=== PATIENT | female | born 1965 | race Caucasian/White ===

== ENCOUNTER → 2016-10-13 | Outpatient (CLI) | payer OTHER ==
--- NOTE | 2016-10-13 17:16 | REP ---
Clinical: Contusion. Technique: AP, lateral, bilateral oblique, and sunrise views of the right knee. Comparison: 04/28/2009. Findings: Marked, severe, progressive, tricompartmental osteoarthritic degenerative changes are appreciated. No acute fracture or dislocation. Suprapatellar effusion cannot be excluded. Impression: Severe advanced tricompartmental degenerative changes and possible suprapatellar effusion. No obvious acute fracture or dislocation. Signed by Philippe Cervantes MD 10/13/2016 11:22 A
--- NOTE | 2016-10-13 17:16 | REP ---
Clinical: Contusion. Technique: Neutral and frog lateral views of the right hip. Findings: Subtle increase sclerosis and minimal joint space narrowing is appreciated. No acute or healed fracture identified. No periarticular calcifications. Surrounding soft tissues are unremarkable. Impression: Mild degenerative changes. No acute fracture or dislocation. Signed by Philippe Cervantes MD 10/13/2016 11:21 A
== END ==
LOC: M WUC 10:42
PROVIDERS: ATTEND Physician Assistant
DX: S73.101A Unspecified sprain of right hip, initial encounter (principal); S80.01XA Contusion of right knee, initial encounter; X58.XXXA Exposure to other specified factors, initial encounter; Y92.89 Other specified places as the place of occurrence of the external cause; Y93.89 Activity, other specified; Y99.8 Other external cause status

== ENCOUNTER → 2016-10-28 | Outpatient (CLI) | payer BC ==
--- NOTE | 2016-10-28 08:24 | REP ---
Clinical: Abnormal liver findings by CT. Comparison: None. Findings: The patient is status post cholecystectomy without significant biliary ductal dilatation. The common bile duct measures 7.9 mm diameter. The liver demonstrates diffuse fatty infiltration without definite focal mass lesion or cyst identified. The pancreas is incompletely evaluated due to interposed bowel gas. 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 No ascites in the visualized right upper quadrant. Impression: Fatty infiltration to the liver without definitive cyst or hepatic mass lesion identified. Signed by Philippe Cervantes MD 10/28/2016 08:15 A
== END ==
LOC: M RAD 07:39
PROVIDERS: ATTEND Internal Medicine Gastroenterology
DX: K76.0 Fatty (change of) liver, not elsewhere classified (principal)

== ENCOUNTER → 2017-04-15 | Outpatient (CLI) | payer BC ==
[2017-04-15 12:55] LABS: BASO % 0.7 % (0.0-1.0); EOS # 0.2 K/mm3 (0.0-0.50); EOS % 2.9 % (0.0-3.0); LARGE UNSTAINED CELL # 0.2 K/mm3 (0.0-0.4); LARGE UNSTAINED CELL % 2.3 % (0.0-4.0); LYMPH # 1.9 K/mm3 (1.5-4.5); LYMPH % 27.8 % (24.0-44.0); MEAN CORPUSCULAR HEMOGLOBIN 26.9 pg (27.0-33.0); MEAN CORPUSCULAR HGB CONC 32.4 g/dl (32.0-36.5); MEAN CORPUSCULAR VOLUME 83.2 fl (80.0-96.0); MONO # 0.5 K/mm3 (0.0-0.8); MONO % 6.7 % (0.0-5.0); NEUTROPHILS % 59.6 % (36.0-66.0); PLATELET COUNT, AUTOMATED 235 k/mm3 (150-450); WHITE BLOOD COUNT 6.7 K/mm3 (4.0-10.0)
[2017-04-15 13:18] LABS: VITAMIN B12 LEVEL 328 PG/ML (247-911)
[2017-04-15 13:32] LABS: ALBUMIN 3.5 GM/DL (3.2-5.2); ALKALINE PHOSPHATASE 55 U/L (45-117); ALT/SGPT 28 U/L (12-78); ANION GAP 8 MEQ/L (8-16); AST/SGOT 15 U/L (15-37); BILIRUBIN,TOTAL 0.3 MG/DL (0.2-1.0); BLOOD UREA NITROGEN 9 MG/DL (7-18); CALCIUM LEVEL 8.9 MG/DL (8.5-10.1); CARBON DIOXIDE LEVEL 26 MEQ/L (21-32); CHLORIDE LEVEL 106 MEQ/L (98-107); CREATININE FOR GFR 0.73 MG/DL (0.55-1.02); GLOMERULAR FILTRATION RATE > 60.0 (>51); GLUCOSE, FASTING 91 MG/DL (70-105); PERCENT SATURATION 9.1 % (13.2-37.4); POTASSIUM SERUM 4.2 MEQ/L (3.5-5.1); SODIUM LEVEL 140 MEQ/L (136-145); TOTAL IRON BINDING CAPACITY 418 UG/DL (250-450)
== END ==
LOC: M WUC 09:27
PROVIDERS: ATTEND Chiropractor
DX: R53.83 Other fatigue (principal)

== ENCOUNTER → 2017-05-13 | Outpatient (CLI) | payer BC ==
--- NOTE | 2017-05-13 10:35 | REP ---
Pelvic ultrasound transabdominal and endovaginal imaging: The bladder is adequately distended. The uterus is anteverted and enlarged measuring 13.9 x 5.8 x 7.6 cm. A fibroid in the anterior myometrium is suspected measuring 5.6 x 4. By 3.6 cm. A small fibroid is suspected in the posterior myometrium measuring 1.0 x 1.2 x 1.4 cm. The right ovary is normal size measuring 3.0 x 2.7 x 3.5 cm. No right ovarian dominant mass or cyst is identified. The left ovary could not be identified. The study is technically difficult because of patient body habitus and acoustic penetration. Signed by Krishan Colbert MD 05/13/2017 10:26 A
[2017-05-13 11:01] LABS: BASO % 0.6 % (0.0-1.0); EOS # 0.2 K/mm3 (0.0-0.50); EOS % 2.8 % (0.0-3.0); LARGE UNSTAINED CELL # 0.2 K/mm3 (0.0-0.4); LARGE UNSTAINED CELL % 2.1 % (0.0-4.0); LYMPH # 1.9 K/mm3 (1.5-4.5); LYMPH % 25.1 % (24.0-44.0); MEAN CORPUSCULAR HEMOGLOBIN 27.1 pg (27.0-33.0); MEAN CORPUSCULAR HGB CONC 32.9 g/dl (32.0-36.5); MEAN CORPUSCULAR VOLUME 82.5 fl (80.0-96.0); MONO # 0.5 K/mm3 (0.0-0.8); MONO % 6.3 % (0.0-5.0); NEUTROPHILS # 4.8 K/mm3 (1.8-7.7); NEUTROPHILS % 63.1 % (36.0-66.0); PLATELET COUNT, AUTOMATED 255 k/mm3 (150-450); RED CELL DISTRIBUTION WIDTH 15.4 % (11.5-14.5); WHITE BLOOD COUNT 7.6 K/mm3 (4.0-10.0)
--- NOTE | 2017-05-18 13:50 | REPMRS ---
Patient History The patient states she had a clinical breast exam in May 2017.Patient is nulliparous. No known family history of cancer. Took unspecified hormones. Digital Mammo Screening Bilat: May 13, 2017 - Exam #: [id number] Bilateral CC and MLO view(s) were taken. Technologist: Milvia Jaimes, Technologist No prior studies available for comparison. FINDINGS: There are scattered fibroglandular densities. There is no evidence of cancer on this mammogram. ASSESSMENT: BI-RADS/ACR category 2 mammogram. Benign finding(s). Recommendation Routine screening mammogram of both breasts in 1 year (for women over age 40). This mammogram was interpreted with the aid of an FDA-approved computer-aided dectection system. Electronically Signed By: Krishan Miller MD 05/18/17 [id number]
== END ==
LOC: M RAD 09:28 → M LAB 09:28
PROVIDERS: ATTEND Nurse Practitioner Women's Health
DX: Z12.31 Encounter for screening mammogram for malignant neoplasm of breast (principal); N92.1 Excessive and frequent menstruation with irregular cycle; Z32.02 Encounter for pregnancy test, result negative
CPT/HCPCS: 36415; 76830; 76856; 84146; 85025; G0202

== ENCOUNTER → 2019-01-02 | Outpatient (REF) | payer BC, OTHER | LOC: M LAB REF 18:14 | PROVIDERS: ATTEND Physician Assistant | DX: J02.9 Acute pharyngitis, unspecified (principal) ==

== ENCOUNTER → 2019-03-30 | Outpatient (REF) | payer BC, OTHER | LOC: M LAB LCGH 11:02 | PROVIDERS: ATTEND Obstetrics & Gynecology | DX: Z12.4 Encounter for screening for malignant neoplasm of cervix (principal) ==

== ENCOUNTER → 2019-04-12 | Outpatient (CLI) | payer BC ==
[2019-04-12 12:36] LABS: BASO # 0.1 10^3/uL (0.0-0.2); BASO % 0.9 % (0.0-1.0); EOS # 0.2 10^3/uL (0.0-0.50); HEMATOCRIT 44.5 % (36.0-47.0); HEMOGLOBIN 14.4 g/dl (12.0-15.5); LYMPH # 1.5 10^3/uL (1.5-4.5); LYMPH % 25.4 % (24.0-44.0); MEAN CORPUSCULAR HEMOGLOBIN 30.3 pg (27.0-33.0); MEAN CORPUSCULAR HGB CONC 32.4 g/dl (32.0-36.5); MEAN CORPUSCULAR VOLUME 93.5 fl (80.0-96.0); MONO # 0.6 10^3/uL (0.0-0.8); NEUTROPHILS # 3.4 10^3/uL (1.8-7.7); NEUTROPHILS % 59.4 % (36.0-66.0); PLATELET COUNT, AUTOMATED 194 10^3/uL (150-450); RED BLOOD COUNT 4.76 10^6/uL (4.00-5.40); WHITE BLOOD COUNT 5.8 10^3/uL (4.0-10.0)
[2019-04-12 13:11] LABS: ALBUMIN 3.9 GM/DL (3.2-5.2); ALT/SGPT 38 U/L (12-78); BILIRUBIN,TOTAL 0.6 MG/DL (0.2-1.0); BLOOD UREA NITROGEN 14 MG/DL (7-18); CALCIUM LEVEL 8.8 MG/DL (8.5-10.1); CARBON DIOXIDE LEVEL 27 MEQ/L (21-32); CHLORIDE LEVEL 105 MEQ/L (98-107); CHOLESTEROL LEVEL 177 MG/DL (<200); CHOLESTEROL RISK RATIO 2.901 (<5); CREATININE FOR GFR 0.76 MG/DL (0.55-1.30); FOLATE 18.5 NG/ML; FREE T4 1.03 NG/DL (0.76-1.46); GLOMERULAR FILTRATION RATE > 60.0 (>51); GLUCOSE, FASTING 103 MG/DL (70-100); HDL CHOLESTEROL 61 MG/DL (>40); LDL CHOLESTEROL 86 MG/DL (<100); NON-HDL-C 116 MG/DL; POTASSIUM SERUM 4.3 MEQ/L (3.5-5.1); SODIUM LEVEL 140 MEQ/L (136-145); TOTAL PROTEIN 7.4 GM/DL (6.4-8.2); TRIGLYCERIDES LEVEL 149 MG/DL (<150)
[2019-04-12 13:18] LABS: HEMOGLOBIN A1c 6.4 %
[2019-04-12 13:24] LABS: VITAMIN B12 LEVEL 346 PG/ML
== END ==
LOC: M WUC 09:11
PROVIDERS: ATTEND Physician Assistant
DX: E03.9 Hypothyroidism, unspecified (principal); Z13.29 Encounter for screening for other suspected endocrine disorder; Z13.220 Encounter for screening for lipoid disorders

== ENCOUNTER → 2019-05-30 | Outpatient (CLI) | payer BC ==
--- NOTE | 2019-05-31 13:59 | REP ---
RADIONUCLIDE THYROID UPTAKE AND SCAN: HISTORY: Multiple thyroid nodules. Left thyroid complex cystic structure. Thyrotoxicosis without thyroid toxic crisis. TECHNIQUE: 404 microcuries of I 123 sodium iodine is ingested and 24-hour uptake value and functional images are acquired. Findings: 24-hour uptake value is slightly below the lower range of normal 21% (25-35%). Functional images demonstrate homogeneous uptake in the thyroid lobes. The right lobe is a little larger than the left. No cold or warm nodule is appreciated. IMPRESSION: Slightly decreased uptake, no cold or warm nodule seen. Electronically Signed by Loki Olmedo MD 05/31/2019 04:42 P
== END ==
LOC: M RAD 10:05
PROVIDERS: ATTEND Physician Assistant
DX: E05.80 Other thyrotoxicosis without thyrotoxic crisis or storm (principal)
CPT/HCPCS: 78012; A9516

== ENCOUNTER → 2020-08-08 | Outpatient (CLI) | payer BC | LOC: M LABSMTC 13:20 | PROVIDERS: ATTEND Internal Medicine Gastroenterology | DX: Z20.828 Contact with and (suspected) exposure to other viral communicable diseases (principal) ==

== ENCOUNTER → 2021-04-24 | Outpatient (REF) | payer BC | LOC: M LAB REF 16:03 | PROVIDERS: ATTEND Family Medicine | DX: A04.4 Other intestinal Escherichia coli infections (principal) ==

== ENCOUNTER → 2021-05-21 | Outpatient (REF) | payer OTHER | LOC: M LAB REF 17:03 | PROVIDERS: ATTEND Family Medicine | DX: R30.0 Dysuria (principal) ==

== ENCOUNTER → 2021-07-29 | Outpatient (REF) | payer OTHER | LOC: M LAB REF 16:21 | PROVIDERS: ATTEND Internal Medicine Gastroenterology | DX: K58.0 Irritable bowel syndrome with diarrhea (principal); R19.7 Diarrhea, unspecified ==

== ENCOUNTER → 2021-07-31 | Outpatient (CLI) | payer OTHER | LOC: M SLEEP HO 10:00 | PROVIDERS: ATTEND Internal Medicine Cardiovascular Disease | DX: R53.82 Chronic fatigue, unspecified (principal); I27.0 Primary pulmonary hypertension; R60.0 Localized edema ==

== ENCOUNTER → 2021-10-16 | Outpatient (CLI) | payer OTHER | LOC: M WUC 10:31 | PROVIDERS: ATTEND Physician Assistant | DX: J20.9 Acute bronchitis, unspecified (principal) ==

== ENCOUNTER → 2022-02-04 | Outpatient (CLI) | payer OTHER ==
[2022-02-04 17:06] LABS: BASO # 0.1 10^3/uL (0.0-0.2); BASO % 0.6 % (0.0-1.0); EOS # 0.2 10^3/uL (0.0-0.5); EOS % 2.3 % (0.0-3.0); HEMATOCRIT 43.4 % (36.0-47.0); LYMPH # 2.1 10^3/uL (1.5-5.0); LYMPH % 24.4 % (24.0-44.0); MEAN CORPUSCULAR HEMOGLOBIN 29.7 pg (27.0-33.0); MEAN CORPUSCULAR HGB CONC 32.3 g/dl (32.0-36.5); MEAN CORPUSCULAR VOLUME 91.9 fl (80.0-96.0); MONO # 0.8 10^3/uL (0.0-0.8); MONO % 9.5 % (2.0-8.0); NEUTROPHILS # 5.3 10^3/uL (1.5-8.5); NEUTROPHILS % 62.5 % (36.0-66.0); PLATELET COUNT, AUTOMATED 224 10^3/uL (150-450); RED BLOOD COUNT 4.72 10^6/uL (4.00-5.40); WHITE BLOOD COUNT 8.5 10^3/uL (4.0-10.0)
[2022-02-04 17:21] LABS: INR 0.9; PROTHROMBIN TIME 12.6 SECONDS (12.7-14.5)
[2022-02-04 20:20] LABS: ALBUMIN 3.8 GM/DL (3.2-5.2); ALT/SGPT 34 U/L (12-78); AMYLASE 44 U/L (25-115); BILIRUBIN,TOTAL 0.4 MG/DL (0.2-1.0); BLOOD UREA NITROGEN 15 MG/DL (7-18); CALCIUM LEVEL 9.9 MG/DL (8.5-10.1); CARBON DIOXIDE LEVEL 26 MEQ/L (21-32); CHLORIDE LEVEL 107 MEQ/L (98-107); CHOLESTEROL LEVEL 194 MG/DL (<200); CREATININE FOR GFR 0.76 MG/DL (0.55-1.30); FERRITIN 229 NG/ML (8-252); FREE T4 0.94 NG/DL (0.76-1.46); GLOMERULAR FILTRATION RATE > 60.0 (>51); GLUCOSE, FASTING 129 MG/DL (70-100); HDL CHOLESTEROL 53 MG/DL (>40); IRON (FE) 49 UG/DL (50-170); LDL CHOLESTEROL 85 MG/DL (<100); LIPASE 191 U/L (73-393); MAGNESIUM LEVEL 2.2 MG/DL (1.8-2.4); NON-HDL-C 141 MG/DL; PERCENT SATURATION 14.2 % (13.2-45.0); SODIUM LEVEL 141 MEQ/L (136-145); TOTAL IRON BINDING CAPACITY 344 UG/DL (250-450); TOTAL PROTEIN 7.2 GM/DL (6.4-8.2); TRIGLYCERIDES LEVEL 282 MG/DL (<150)
[2022-02-04 21:29] LABS: TOTAL 25(OH) VITAMIN D 29.6 NG/ML (30.0-100.0)
[2022-02-04 21:48] LABS: VITAMIN B12 LEVEL 400 PG/ML (247-911)
[2022-02-04 22:20] LABS: HEMOGLOBIN A1c 6.2 %
[2022-02-05 21:38] LABS: PREALBUMIN 28.5 MG/DL (20.0-40.0)
== END ==
LOC: M WUC 15:31
DX: R73.03 Prediabetes (principal); E66.01 Morbid (severe) obesity due to excess calories; K21.9 Gastro-esophageal reflux disease without esophagitis; I10 Essential (primary) hypertension

== ENCOUNTER → 2023-02-16 | Outpatient (CLI) | payer BC | LOC: M RAD 09:27 | PROVIDERS: ATTEND Physician Assistant | DX: M79.662 Pain in left lower leg (principal) ==